=== PATIENT | male | born 1970 | race Caucasian/White ===

== ENCOUNTER 2023-11-11 13:16 | Inpatient (IN) | payer OTHER ==
[2023-11-11 13:50] VITALS: BMI 25.7
[2023-11-11] MEDS ORDERED: BENZOCAINE/MENTHOL (CHLORASEPTIC ) LOZENGE MM PRN (14:02)
[2023-11-11] MEDS ORDERED: MAG HYDROX/AL HYDROX/SIMETH 30 ML UNIT-DOSE CUP PO PRN (14:02)
[2023-11-11] MEDS ORDERED: ONDANSETRON *ODT* 4 MG TABLET SL PRN (14:02)
[2023-11-11] MEDS ORDERED: BENZONATATE 200 MG CAPSULE PO PRN (14:02)
[2023-11-11] MEDS ORDERED: POLYETHYLENE GLYCOL (HEALTHYLAX) 3350 17 GM PACKET PO PRN (14:02)
[2023-11-11] MEDS ORDERED: MAGNESIUM HYDROX 2400MG/30ML ORAL SUSPENSION 30 ML CUP PO PRN (14:02)
[2023-11-11] MEDS ORDERED: guaiFENesin 600 MG TABLET.ER (FP) PO PRN (14:02)
[2023-11-11] MEDS ORDERED: ACETAMINOPHEN 325 MG TABLET (FP) PO PRN (14:02)
[2023-11-11] MEDS ORDERED: NICOTINE POLACRILEX 2 MG LOZENGE BC PRN (14:02)
[2023-11-11] MEDS ORDERED: LOPERAMIDE HCL 2 MG CAPSULE PO PRN (14:02)
[2023-11-11] MEDS ORDERED: DICYCLOMINE HCL 10 MG CAPSULE PO PRN (14:02)
[2023-11-11] MEDS ORDERED: chlordiazePOXIDE HCL 25 MG CAPSULE ONE (14:34)
[2023-11-11] MEDS: chlordiazePOXIDE HCL 25 MG CAPSULE PO ONE (14:38)
[2023-11-11] MEDS: chlordiazePOXIDE HCL 25 MG CAPSULE PO SCH (17:52)
[2023-11-11] MEDS: MELATONIN 5 MG TABLETS PO SCH (22:18)
[2023-11-11] MEDS: THIAMINE 100 MG TABLET PO SCH (22:18)
[2023-11-12] MEDS: PRENATAL VITAMINS W/ FOLIC ACID TABLET (FP) PO SCH (10:13)
[2023-11-12 14:13] LABS: HEMATOCRIT 43.6 % (35.4-49); HEMOGLOBIN 14.7 GM/dL (11.7-16.9); MCH 32.7 pg (25.7-33.7); MCHC 33.8 g/dl (32.0-35.9); MEAN CELL VOLUME 96.6 fl (80-96); MEAN PLT VOLUME 8.5 fl (7.5-11.1); PLATELET COUNT 148 10^3/uL (134-434); RBC 4.51 M/mm3 (4.00-5.60); RDW 14.2 % (11.9-15.9); WHITE BLOOD COUNT 4.5 K/mm3 (4.0-10.0)
[2023-11-12 14:18] LABS: CHLORIDE 102 mmol/L (98-107); POTASSIUM 3.9 mmol/L (3.5-5.1); SODIUM 136 mmol/L (136-145)
[2023-11-12 14:23] LABS: CALCIUM 8.7 mg/dL (8.5-10.1)
[2023-11-12 14:24] LABS: ALBUMIN 3.2 g/dl (3.4-5.0); ANION GAP 4 mmol/L (4-13); BLOOD UREA NITROGEN 7.3 mg/dL (7-18); CO2 30 mmol/L (21-32); GLUCOSE,RANDOM 105 mg/dL (74-106)
[2023-11-12 14:25] LABS: SGOT/AST 152 U/L (15-37); SGPT/ALT 155 U/L (13-61)
[2023-11-12 14:27] LABS: CREATININE 0.7 mg/dL (0.55-1.3); TOT PROT 6.5 g/dl (6.4-8.2)
[2023-11-12 14:28] LABS: ALK PHOS 82 U/L (45-117)
[2023-11-12] MEDS: chlordiazePOXIDE HCL 25 MG CAPSULE PO PRN (14:59)
[2023-11-12] MEDS: NICOTINE POLACRILEX 2 MG GUM BUC PRN (17:25)
[2023-11-12] MEDS: MELATONIN 5 MG TABLETS PO SCH (22:12)
[2023-11-13] MEDS: chlordiazePOXIDE HCL 25 MG CAPSULE PO SCH (05:45)
[2023-11-13] MEDS: IBUPROFEN 400 MG TABLET (FP) PO PRN (17:17)
[2023-11-13] MEDS: METHOCARBAMOL 500 MG TABLET PO PRN (18:53)
[2023-11-14] MEDS ORDERED: chlordiazePOXIDE HCL 10 MG CAPSULE PO PRN
[2023-11-14] MEDS: chlordiazePOXIDE HCL 10 MG CAPSULE PO SCH (05:30)
[2023-11-14] MEDS: IBUPROFEN 600 MG TABLET (FP) PO PRN (17:25)
[2023-11-14] MEDS: BISMUTH SUBSALICYLATE 262 MG/15 ML BTL PO PRN (21:55)
[2023-11-15] MEDS: chlordiazePOXIDE HCL 10 MG CAPSULE PO SCH (05:48)
[2023-11-16] MEDS: chlordiazePOXIDE HCL 10 MG CAPSULE PO ONE (06:00)
[2023-11-16 10:31] VITALS: BP 105/65
[2023-11-16 13:07] VITALS: PULSE 68; RESP 17; TEMP 97.6
== END 2023-11-16 15:36 | disposition other institution (70) | DRG 897 ==
LOC: YASAS 13:16 → Y3N 15:01
PROVIDERS: ADMIT Allergy & Immunology; ATTEND Surgery
PROC: HZ2ZZZZ Detoxification Services for Substance Abuse Treatment (ICD-10-PCS; principal; 2023-11-11)
DX: F10.230 Alcohol dependence with withdrawal, uncomplicated (principal); Z59.00 Homelessness unspecified; F17.210 Nicotine dependence, cigarettes, uncomplicated; R74.8 Abnormal levels of other serum enzymes; Z56.0 Unemployment, unspecified
CPT/HCPCS: 36415; 80053; 80305; 80307; 84450; 84460; 85027; 86780; 87811; 93005; 93010

== ENCOUNTER 2023-11-16 15:45 | Inpatient (IN) | payer OTHER ==
[2023-11-16] MEDS ORDERED: NALOXONE HCL 0.4 MG/ML VIAL IVPUSH PRN (16:13)
[2023-11-16] MEDS ORDERED: POLYETHYLENE GLYCOL (HEALTHYLAX) 3350 17 GM PACKET PO PRN (16:13)
[2023-11-16] MEDS ORDERED: MAG HYDROX/AL HYDROX/SIMETH 30 ML UNIT-DOSE CUP PO PRN (16:13)
[2023-11-16] MEDS ORDERED: IBUPROFEN 400 MG TABLET (FP) PO PRN (16:13)
[2023-11-16] MEDS ORDERED: MAGNESIUM HYDROX 2400MG/30ML ORAL SUSPENSION 30 ML CUP PO PRN (16:13)
[2023-11-16] MEDS ORDERED: NALOXONE (NARCAN) HCL 4 MG/0.1 ML SPRAY NS PRN (16:13)
[2023-11-16] MEDS ORDERED: LOPERAMIDE HCL 2 MG CAPSULE PO PRN (16:13)
[2023-11-16] MEDS ORDERED: guaiFENesin 600 MG TABLET.ER (FP) PO PRN (16:13)
[2023-11-16] MEDS ORDERED: ACETAMINOPHEN 325 MG TABLET (FP) PO PRN (16:13)
[2023-11-16] MEDS ORDERED: BENZONATATE 200 MG CAPSULE PO PRN (16:13)
[2023-11-16] MEDS ORDERED: BENZOCAINE/MENTHOL (CHLORASEPTIC ) LOZENGE MM PRN (16:13)
[2023-11-16] MEDS: NICOTINE 21 MG/24 HOURS TOPICAL PATCH TD SCH (16:56)
[2023-11-16] MEDS: IBUPROFEN 600 MG TABLET (FP) PO PRN (17:51)
[2023-11-16] MEDS: THIAMINE 100 MG TABLET PO SCH (21:16)
[2023-11-16] MEDS: MELATONIN 5 MG TABLETS PO SCH (21:16)
[2023-11-16] MEDS: hydrOXYzine PAMOATE 25 MG CAPSULE (FP) PO PRN (23:46)
[2023-11-17] MEDS: PRENATAL VITAMINS W/ FOLIC ACID TABLET (FP) PO SCH (09:55)
[2023-11-17 12:27] LABS: INR 0.89 (0.83-1.09); PROTHROMBIN TIME (PATIENT) 10.3 SEC (9.7-13.0)
[2023-11-17] MEDS ORDERED: ONDANSETRON 4 MG TABLET PO PRN (12:41)
[2023-11-17] MEDS ORDERED: ONDANSETRON *ODT* 4 MG TABLET SL PRN (12:55)
[2023-11-17] MEDS: GABAPENTIN 100 MG CAPSULE PO SCH (13:31)
[2023-11-17] MEDS: METHOCARBAMOL 500 MG TABLET PO PRN (13:31)
[2023-11-19] MEDS: ESCITALOPRAM OXALATE 10 MG TABLET PO SCH (10:05)
[2023-11-19] MEDS: NICOTINE POLACRILEX 4 MG LOZENGE BC PRN (13:30)
[2023-11-19 13:35] LABS: HIV INTERPRETATION NEGATIVE (NEGATIVE)
[2023-11-20] MEDS: NICOTINE POLACRILEX 4 MG GUM BUC PRN (06:10)
[2023-11-21] MEDS: traZODone HCL 50 MG TABLET (FP) PO SCH (21:15)
[2023-11-21] MEDS: PRAZOSIN HCL 5 MG CAPSULE PO SCH (21:15)
[2023-11-22] MEDS: LORazepam 2 MG/ML SDV VIAL IM ONE (05:43)
[2023-11-23] MEDS: traZODone HCL 50 MG TABLET (FP) PO SCH (21:21)
[2023-11-23] MEDS: PRAZOSIN HCL 1 MG CAPSULE PO SCH (21:21)
[2023-11-24] MEDS: HEPATITIS A VIRUS VACCINE/PF 1440 UNIT/1 ML IM ONE (15:31)
[2023-11-25] MEDS: LACTULOSE 20 GM/30 ML UDC (FOR ORAL USE ONLY) PO PRN (05:46)
[2023-11-28] MEDS: LACTULOSE 20 GM/30 ML UDC (FOR ORAL USE ONLY) PO SCH (13:35)
[2023-11-29] MEDS: NALTREXONE HCL 50 MG TABLET PO SCH (17:31)
[2023-11-29] MEDS: traZODone HCL 50 MG TABLET (FP) PO SCH (21:24)
[2023-11-30] MEDS: FLU VACCINE (FLULAVAL) PF 45 MCG/0.5 ML SYRINGE 2024-2025 IM ONE (13:14)
[2023-12-01] MEDS: FLU VACCINE (FLULAVAL) PF 45 MCG/0.5 ML SYRINGE 2024-2025 IM ONE (10:39)
[2023-12-01 13:13] LABS: POTASSIUM 3.9 mmol/L (3.5-5.1)
[2023-12-01 13:20] LABS: ALBUMIN 3.7 g/dl (3.4-5.0)
[2023-12-01 13:30] LABS: CALCIUM 9.1 mg/dL (8.5-10.1)
[2023-12-01 13:31] LABS: BLOOD UREA NITROGEN 17.6 mg/dL (7-18)
[2023-12-01 13:34] LABS: CREATININE 0.9 mg/dL (0.55-1.3)
[2023-12-01 13:35] LABS: BILIRUBIN,TOTAL 0.4 mg/dL (0.2-1); TOT PROT 6.9 g/dl (6.4-8.2)
[2023-12-02] MEDS ORDERED: ESCITALOPRAM OXALATE 10 MG TABLET ONE (09:24)
[2023-12-02] MEDS: ESCITALOPRAM OXALATE 20 MG TABLET PO SCH (10:04)
[2023-12-03] MEDS ORDERED: ESCITALOPRAM OXALATE 10 MG TABLET ONE (10:00)
[2023-12-04] MEDS ORDERED: ESCITALOPRAM OXALATE 10 MG TABLET ONE (08:58)
[2023-12-06] MEDS ORDERED: ESCITALOPRAM OXALATE 10 MG TABLET ONE (09:25)
[2023-12-07] MEDS ORDERED: ESCITALOPRAM OXALATE 10 MG TABLET ONE (08:45)
[2023-12-07] MEDS: traZODone HCL 50 MG TABLET (FP) PO PRN (21:26)
[2023-12-08] MEDS ORDERED: ESCITALOPRAM OXALATE 10 MG TABLET ONE (10:26)
[2023-12-09] MEDS ORDERED: ESCITALOPRAM OXALATE 10 MG TABLET ONE (09:18)
[2023-12-09] MEDS ORDERED: NALOXONE (NYS OPIOID OVERDOSE PROGRAM) 4 MG/0.1 ML SPRAY NS PRN (14:47)
[2023-12-09] MEDS: NALOXONE (NYS OPIOID OVERDOSE PROGRAM) 4 MG/0.1 ML SPRAY NS ONE (15:00)
[2023-12-11] MEDS ORDERED: ESCITALOPRAM OXALATE 10 MG TABLET ONE (08:59)
[2023-12-11] MEDS: NALTREXONE MICROSPHERES (VIVITROL) 380 MG DISP.SYRIN IM ONE (10:50)
[2023-12-12 06:29] VITALS: BP 115/83; PULSE 80; RESP 17; TEMP 97.5
[2023-12-12] MEDS ORDERED: ESCITALOPRAM OXALATE 10 MG TABLET ONE (09:20)
== END 2023-12-12 09:40 | disposition home or self-care (01) | DRG 895 ==
LOC: YASAS 15:45 → Y3W 15:46
PROVIDERS: ADMIT Psychiatry & Neurology Pain Medicine; ATTEND Psychiatry & Neurology Pain Medicine
PROC: HZ42ZZZ Group Counseling for Substance Abuse Treatment, Cognitive-Behavioral (ICD-10-PCS; principal; 2023-11-16)
DX: F10.20 Alcohol dependence, uncomplicated (principal); E72.20 Disorder of urea cycle metabolism, unspecified; F17.210 Nicotine dependence, cigarettes, uncomplicated; F43.10 Post-traumatic stress disorder, unspecified; F32.A Depression, unspecified; I95.1 Orthostatic hypotension; R74.8 Abnormal levels of other serum enzymes
CPT/HCPCS: 36415; 80053; 82140; 82652; 82962; 83735; 85610; 86803; 87389; 90632; 90656; G0008; J2315

== ENCOUNTER 2023-11-22 06:28 | Emergency (ER) | payer OTHER ==
[2023-11-22 06:32] VITALS: RESP 18; BMI 26.1
[2023-11-22] MEDS: SODIUM CHLORIDE 0.9% 500 ML INFUS.BAG IV ONE (08:50)
[2023-11-22 08:55] LABS: BASO % 1.1 % (0-2.0); EOS % 1.5 % (0-4.5); HEMATOCRIT 39.9 % (35.4-49); HEMOGLOBIN 13.4 GM/dL (11.7-16.9); LYMPH % 21.2 % (8-40); MCH 33.1 pg (25.7-33.7); MCHC 33.6 g/dl (32.0-35.9); MEAN CELL VOLUME 98.4 fl (80-96); MEAN PLT VOLUME 7.5 fl (7.5-11.1); MONO % 12.4 % (3.8-10.2); NEUT % 63.8 % (42.8-82.8); PLATELET COUNT 240 10^3/uL (134-434); RBC 4.06 M/mm3 (4.00-5.60); RDW 14.6 % (11.9-15.9); WHITE BLOOD COUNT 5.8 K/mm3 (4.0-10.0)
[2023-11-22 09:01] LABS: POTASSIUM 3.9 mmol/L (3.5-5.1)
[2023-11-22 09:03] LABS: CALCIUM 8.5 mg/dL (8.5-10.1)
[2023-11-22 09:04] LABS: ALBUMIN 3.1 g/dl (3.4-5.0)
[2023-11-22 09:07] LABS: CREATININE 0.8 mg/dL (0.55-1.3)
[2023-11-22 09:08] LABS: BILIRUBIN,TOTAL 0.6 mg/dL (0.2-1)
[2023-11-22 09:09] LABS: TOT PROT 6.2 g/dl (6.4-8.2)
[2023-11-22 10:09] VITALS: BP 104/65; PULSE 75; TEMP 97.4
== END 2023-11-22 11:06 | disposition home or self-care (01) ==
LOC: JER 06:28
DX: I95.89 Other hypotension (principal)
CPT/HCPCS: 36415; 71046-TC-FY; 80053; 83605; 85025; 93005; 93010; 99285-25